=== PATIENT | male | born 2000 | race Two or more races ===

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

== ENCOUNTER 2021-11-10 12:38 | Emergency (ER) | payer BC ==
[~2021-11-10] VITALS: Ht 175.3 cm; Wt 83.9 kg
[2021-11-10 14:38] VITALS: BP 122/54
[2021-11-10] MEDS ORDERED: BENZ100C97 PO (15:12)
[2021-11-10] MEDS ORDERED: METH4PAK PO (15:12)
[2021-11-10] MEDS ORDERED: SODIUM CHLORIDE 0.9% 1,000 ML IV ONE (15:15)
[2021-11-10] MEDS ORDERED: cefTRIAXone 1GM/50ML D5W 50 ML IV ONE (15:15)
[2021-11-10] MEDS ORDERED: AZIT250T8 PO (17:12)
[2021-11-10] MEDS ORDERED: DexAMETHasone SOD PHOS 4 MG/1ML SDV INJ IV ONE (17:15)
== END 2021-11-10 18:03 | disposition home or self-care (01) ==
LOC: ER 12:43
DX: J06.9 Acute upper respiratory infection, unspecified (principal); J02.9 Acute pharyngitis, unspecified; Z20.822 Contact with and (suspected) exposure to COVID-19
CPT/HCPCS: 36415; 71046; 87426; 93005; 96365; 96375; 99285; J0696; J1100; J7030